=== PATIENT | male | born 1955 | race American Indian/Alaskan Native ===

== ENCOUNTER 2017-06-23 09:20 | Outpatient (CLI) | payer BC ==
--- NOTE | 2017-06-23 16:31 | Nuclear Medicine Report ---
Whole body bone scan: Prostate cancer. Following injection of radiotracer activity is present in the urinary tract and there is a relatively good bone to background ratio. Whole body imaging for performed approximately 3 hours. Activity is present at the L3 level better seen posteriorly. A small focus of activity is identified just to the right of the lower sternum. Intense increased activities are noted bilaterally in the ankle regions with some scattered areas of uptake in both knees. When compared to the prior examination in April 2009 the activity pattern currently identified is almost identical. Impression: Generally stable bone scan with no suspicion of metastatic disease.
--- NOTE | 2017-06-24 09:45 | Cat Scan Report ---
FINAL REPORT EXAM: CT ABDOMEN PELVIS WO CON HISTORY: PROSTATE CANCER TECHNIQUE: Noncontrast CT of the abdomen and pelvis performed. No IV or gastrointestinal contrast was administered. Coronal and sagittal reformatted images were obtained. PRIORS: None. FINDINGS: There are coronary artery atherosclerotic calcifications. There is some dependent atelectasis at the lung bases. There is a vague area of low attenuation in the right hepatic lobe measuring about 3.8 cm. This could be a mass. There is a small low-density lesion in the left lobe which may be a cyst. There are aortoiliac atherosclerotic calcifications. There is no abdominal aortic aneurysm. There is no evidence of intestinal obstruction. The appendix is normal. There is no free intraperitoneal air. There are no abnormal fluid collections seen. The bladder is unremarkable. There is no abnormal pelvic mass or fluid collections seen. There is an 8 mm lucent lesion in the left ischium. Lytic lesion not excluded. There are degenerative changes in the lumbar spine. IMPRESSION: There is a vague low-density area in the right hepatic lobe measuring roughly 3.8 cm. This could be a focal mass. Recommend correlation with post-contrast CT or MRI. There is a nonspecific 8 mm lucent lesion in the ischium, series 2, image 155. Small lytic lesion not excluded. Coronary and aortic atherosclerotic disease.
== END 2017-06-23 09:21 | disposition home or self-care (01) ==
LOC: NM 09:20
PROVIDERS: ATTEND Urology
DX: C61 Malignant neoplasm of prostate (principal); I25.10 Atherosclerotic heart disease of native coronary artery without angina pectoris; J98.11 Atelectasis; I70.0 Atherosclerosis of aorta; M47.896 Other spondylosis, lumbar region
CPT/HCPCS: 74176; 78306; A9503

== ENCOUNTER 2017-07-19 07:33 | Day surgery (SDC) | payer BC, OTHER ==
[2017-07-19] MEDS ORDERED: SUBLIMAZE IV NR (08:30)
[2017-07-19] MEDS ORDERED: VERSED IV NR (09:00)
[2017-07-19 09:12] LABS: Hematocrit 32.4 % (35.5-45.6); Hemoglobin 10.5 gm/dl (11.8-15.2); Mean Corpuscular HGB Conc 32 % (32-34); Mean Corpuscular Hemoglobin 29 pg (28-32); Mean Corpuscular Volume 88 fl (84-94); Platelet Count 382 K/mm3 (140-440); Red Blood Count 3.67 M/mm3 (3.65-5.03); Red Cell Distribution Width 13.6 % (13.2-15.2)
[2017-07-19 09:21] LABS: INR 1.05 (0.87-1.13)
[2017-07-19 09:22] LABS: Partial Thromboplastin Time 30.1 Sec. (24.2-36.6)
[2017-07-19 09:23] LABS: Calcium 8.9 mg/dL (8.4-10.2)
[2017-07-19 11:16] LABS: Band Neutrophils # (Manual) 1.1 K/mm3; Basophils % (Manual) 0 % (0.0-1.8); Eosinophils % (Manual) 0 % (0.0-4.3); Platelet Estimate Consistent w Auto; RBC Morphology Normal; Total Cells Counted 100
[2017-07-19 14:39] VITALS: BP 126/63
--- NOTE | 2017-07-20 07:28 | Cat Scan Report ---
CT BIOPSY LIVER History: Prostate cancer, right hepatic lobe mass. Description of procedure: Informed consent was obtained. Sterile technique was utilized. 1% lidocaine for skin anesthesia. Moderate sedation was accomplished with Versed and fentanyl. The patient was sedated for 20 minutes. Independent cardiorespiratory monitoring by RN. Intraobserver time was [address] guidance, a 17-gauge introducer needle was advanced to the leading edge of an ill-defined area of decreased attenuation in the right hepatic lobe measuring 6.5 x [address] abdomen pelvis dated 06/23/17. Please note this area is very poorly delineated on the CT biopsy images. 3 separate 1.2 cm 18-gauge core biopsies were obtained for pathology. No complications. IMPRESSION: Successful CT-guided biopsy of the ill-defined hypodense lesion in the right hepatic lobe.
== END 2017-07-19 15:20 | disposition home or self-care (01) ==
LOC: CATHLABREC 07:33
PROVIDERS: ATTEND Urology
DX: D18.03 Hemangioma of intra-abdominal structures (principal)
CPT/HCPCS: 36415; 47000; 77012; 80048; 85007; 85025; 85610; 85730; 88307; 88333; 99156; J2250; J3010; 88172; 88173